=== PATIENT | female | born 1980 | race Two or more races ===

== ENCOUNTER 2018-11-15 16:03 | Outpatient (CLI) | payer BC, OTHER ==
--- NOTE | 2018-11-15 17:26 | US ---
EXAMINATION TYPE: US OB limited DATE OF EXAM: 11/15/2018 COMPARISON: NONE CLINICAL HISTORY: variables at 35 weeks. Assess DEANNE EXAM PERFORMED: Transabdominal (TA) GESTATIONAL AGE / DATING Physician Established: (35 weeks/6 days) EDC: 12/14/18 No growth performed on today?s study per ordering physician SURVEY DEANNE: 10.9 cm Normal Ultrasound evidence of premature rupture of membranes? no HEART RATE: 139 bpm RHYTHM: Normal IMPRESSION: Negative examination.
--- NOTE | 2018-11-24 18:07 | P.MSEPDOC ---
Presenting Problems - Arrival Data Date of Arrival on Unit: 11/15/18 Time of Arrival on Unit: 16:03 Mode of Transport: Ambulatory Physician Notification (Pre) - Notification Comment Comment: Dr. Pereira sent pt from office for extended monitoring, and ultrasound for travon, he was given report by ultrasound about travon, he reviewed strip and discharged pt home Disposition - Disposition OB Disposition: Triage, Discharge to home, Written follow up instructions reviewed Discharge Date: 11/15/18 Discharge Time: 16:45 I agree with the RN Medical Screening Exam: Yes Risk & Benefit of care provided described in d/c instruction: Yes Diagnosis: RELATED CONDITIONS, UNSPECIFIED, THIRD TRIMESTER
== END 2018-11-15 16:48 | disposition home or self-care (01) ==
LOC: FBPOP 16:03
PROVIDERS: ATTEND Obstetrics & Gynecology
DX: O26.93 Pregnancy related conditions, unspecified, third trimester (principal); Z3A.35 35 weeks gestation of pregnancy
CPT/HCPCS: 59025; 76815

== ENCOUNTER → 2018-12-03 | Outpatient (CLI) | payer OTHER ==
--- NOTE | 2019-01-27 08:57 | P.MSEPDOC ---
I agree with the RN Medical Screening Exam: Yes Risk & Benefit of care provided described in d/c instruction: Yes Diagnosis: RELATED CONDITIONS, UNSPECIFIED, THIRD TRIMESTER
== END | disposition home or self-care (01) ==
LOC: FBPOP 11:27
PROVIDERS: ATTEND Obstetrics & Gynecology
DX: O26.93 Pregnancy related conditions, unspecified, third trimester (principal); Z3A.00 Weeks of gestation of pregnancy not specified
CPT/HCPCS: 59025

== ENCOUNTER 2018-12-07 06:15 | Inpatient (IN) | payer BC, OTHER ==
[2018-12-07] MEDS ORDERED: TERBUTALINE 1 MG/ML VIAL SQ PRN (06:58)
[2018-12-07] MEDS ORDERED: LIDOCAINE 0.5% (PF) 5 MG/ML (50 ML SDV) SQ PRN (06:58)
[2018-12-07] MEDS ORDERED: OXYTOCIN 10 UNIT/ML 1 ML VIAL IM PRN (06:58)
[2018-12-07] MEDS ORDERED: METHYLERGONOVINE 0.2 MG/ML 1 ML AMP IM PRN (06:58)
[2018-12-07] MEDS ORDERED: CARBOPROST TROMETHAMINE 250 MCG/ML 1 ML AMP IM PRN (06:58)
[2018-12-07 07:31] VITALS: BMI 23.6
[2018-12-07] MEDS: LACTATED RINGERS 1,000 ML IV SCH ×2 (07:32→11:38)
[2018-12-07] MEDS: OXYTOCIN 20 UNITS/1000 ML NS 1,000 ML IV SCH (07:47)
[2018-12-07 07:54] LABS: Basophils % (A) 0 %; Eosinophils % (A) 0 %; HCT 35.1 % (34.0-46.0); HGB 11.4 gm/dL (11.4-16.0); Lymphocytes # (A) 1.7 k/uL (1.0-4.8); Lymphocytes % (A) 17 %; MCH 31.8 pg (25.0-35.0); MCHC 32.4 g/dL (31.0-37.0); MCV 98.3 fL (80.0-100.0); Mean Platelet Volume 8.2; Monocytes # (A) 0.4 k/uL (0-1.0); Monocytes % (A) 4 %; Neutrophils # (A) 7.9 k/uL (1.3-7.7); Neutrophils % (A) 77 %; Platelet Count 162 k/uL (150-450); RBC 3.57 m/uL (3.80-5.40); RDW 13.3 % (11.5-15.5); WBC 10.2 k/uL (3.8-10.6)
[2018-12-07] MEDS ORDERED: BUTORPHANOL 1 MG/ML 1 ML VIAL IV PRN (10:04)
[2018-12-07] MEDS ORDERED: SODIUM CHLORIDE 0.9% 100 ML BAG ONE (11:17)
[2018-12-07] MEDS ORDERED: ROPIVACAINE 5MG/ML 20ML VIAL ONE (11:17)
[2018-12-07] MEDS ORDERED: fentaNYL (PF) 50 MCG/ML 5 ML AMP ONE (11:17)
[2018-12-07] MEDS ORDERED: LANOLIN CREAM 5 GM TUBE TOPICAL PRN (14:44)
[2018-12-07] MEDS ORDERED: WITCH HAZEL 1 EACH MED..PAD TOPICAL PRN (14:44)
[2018-12-07] MEDS ORDERED: SIMETHICONE 80 MG CHEWABLE PO PRN (14:44)
[2018-12-07] MEDS ORDERED: BENZOCAINE/MENTHOL SPRAY 1 GM/SPRAY AEROSOL TOPICAL PRN (14:44)
[2018-12-07] MEDS ORDERED: ZOLPIDEM 5 MG TAB PO PRN (14:44)
[2018-12-07] MEDS: IBUPROFEN 600 MG TAB PO PRN ×2 (15:12→22:20)
--- NOTE | 2018-12-07 16:06 | P.HPOB ---
History of Present Illness H&P Date: 12/07/18 Chief Complaint: Intrauterine at term: Advanced maternal age Patient is a 38-year-old at 39 weeks gestation arise for induction of labor. She was seen by maternal medicine for advanced maternal age and we 've been watching her closely throughout her per the for same. Pertinent labs include A+ blood type Rh antibody was negative, rubella immune, hepatitis B surface antigen/RPR/HIV were all negative. Group B strep was also negative. Her course otherwise was unremarkable. On physical exam vital signs are stable and afebrile. Heart regular, lungs clear, extremities without pain. Abdomen is soft and gravid uterus is noted. Category 1 tracing is noted. She is dilated to approximately 2 cm and 80% effaced. Artificial rupture membranes was performed and clear fluid is noted. Assessment intrauterine at term: Plan expect spontaneous vaginal delivery and plan for epidural for analgesia. Past Medical History Past Medical History: No Reported History History of Any Multi-Drug Resistant Organisms: None Reported Past Surgical History: Appendectomy, Breast Surgery, Tonsillectomy Past Anesthesia/Blood Transfusion Reactions: No Reported Reaction Past Psychological History: ADD/ADHD, Depression Smoking Status: Current every day smoker Past Alcohol Use History: None Reported Past Drug Use History: None Reported - Past Family History Mother Family Medical History: Cancer, Diabetes Mellitus, Hypertension, Myocardial Infarction ([place]) Medications and Allergies Home Medications Medication Instructions Recorded Confirmed Type Pnv No.95/Ferrous Fum/Folic AC 1 each PO DAILY 11/15/18 12/07/18 History [ Multivitamin Tablet] Allergies Allergy/AdvReac Type Severity Reaction Status Date / Time No Known Allergies Allergy Verified 12/07/18 06:58 Exam Osteopathic Statement: *. No significant issues noted on an osteopathic structural exam other than those noted in the History and Physical/Consult. Vital Signs Temp Pulse Resp BP 12/07/18 15:47 70 14 110/70 12/07/18 15:17 61 14 104/51 12/07/18 15:05 76 14 148/76 12/07/18 14:50 93 14 138/65 12/07/18 14:35 86 14 145/53 12/07/18 14:20 98 F 88 18 131/62 12/07/18 07:22 97.4 F L 82 14 113/82 Intake and Output 0112/07/18 12/07/18 06:59 14:59 22:59 Other: Weight 64.41 kg - OBG Physical Exam Breast: both: normal (no masses) Abdomen: bowel sounds normal, no diffuse tenderness, no bruit present, no guarding noted, no hepatomegaly, no splenomegaly, no mass Vulva: both: normal Vagina: normal moisture, no discharge Cervix: no lesion, no discharge Uterus: normal size, normal contour Adnexa: both: normal Anus/Rectum: normal perianal skin, no rectal mass, no hemorrhoids, heme negative Results Result Diagrams: 12/07/18 07:41 Abnormal Lab Results - Last 24 Hours (Table) 12/07/18 Range/Units 07:41 RBC 3.57 L (3.80-5.40) m/uL Neutrophils # 7.9 H (1.3-7.7) k/uL
--- NOTE | 2018-12-07 16:08 | P.PROBDLV ---
Vaginal Delivery Note - . Vaginal Delivery Note: Patient progressed complete and pushing with spontaneous vaginal delivery of a viable male over a secondary midline episiotomy. Episiotomy was made at patient's request as she is had one before when the baby weighed 6 lbs. 1 oz. and there was expectation this baby would be bigger. Following delivery of the head from left occiput anterior position mouth nares were bulb suctioned and anterior and posterior shoulders were delivered with gentle downward and upward traction. Once baby was fully delivered baby was placed on mother's abdomen where the umbilical cord was clamped and cut in usual fashion following 40 seconds of pulsation. Nursery personnel was present to assume care. Weight was 7 lbs. 7 oz. and mother and baby are stable following delivery. Placenta was then delivered intact and Pitocin was added to the IV. Second-degree midline episiotomy was then repaired in usual fashion with 3-0 Vicryl following 1% Xylocaine for analgesia
[2018-12-07] MEDS: HYDROcodone/APAP 5-325MG 1 EACH TAB PO PRN (18:55)
[2018-12-07] MEDS: SENNOSIDES-DOCUSATE SODIUM 1 EACH TAB PO SCH (21:11)
[2018-12-08] MEDS: HYDROcodone/APAP 5-325MG 1 EACH TAB PO PRN ×4 (04:18→21:44)
[2018-12-08 07:38] LABS: Basophils # (A) 0.1 k/uL (0-0.2); Basophils % (A) 0 %; Eosinophils # (A) 0.1 k/uL (0-0.7); Eosinophils % (A) 1 %; HCT 34.8 % (34.0-46.0); HGB 11.3 gm/dL (11.4-16.0); Lymphocytes # (A) 2.4 k/uL (1.0-4.8); Lymphocytes % (A) 19 %; MCH 32.3 pg (25.0-35.0); MCHC 32.3 g/dL (31.0-37.0); MCV 99.8 fL (80.0-100.0); Mean Platelet Volume 8.2; Monocytes # (A) 0.7 k/uL (0-1.0); Monocytes % (A) 5 %; Neutrophils # (A) 9.1 k/uL (1.3-7.7); Neutrophils % (A) 73 %; Platelet Count 142 k/uL (150-450); RBC 3.49 m/uL (3.80-5.40); RDW 13.2 % (11.5-15.5); WBC 12.6 k/uL (3.8-10.6)
--- NOTE | 2018-12-08 07:49 | P.DS ---
Providers Date of admission: 12/07/18 06:44 Expected date of discharge: 12/08/18 Attending physician: Sunday Pereira Primary care physician: Stated None Hospital Course: Patient is doing very well day 1. She is ambulating, voiding, and she is tolerating her diet. She requests discharged home today. Vital signs are stable and afebrile. Heart regular, lungs clear, extremities without pain. Abdomen soft uterus is firm, and lochia is reported light. Prescription for Motrin was 40 to her pharmacy. All questions were answered and discharge instructions thoroughly reviewed. She is stable for discharge this time. She' ll follow up with me in 6 weeks. Patient Condition at Discharge: Good Plan - Discharge Summary Discharge Rx Participant: Yes New Discharge Prescriptions: New Ibuprofen [Motrin] 600 mg PO Q6HR PRN #30 tab PRN Reason: Pain No Action Pnv No.95/Ferrous Fum/Folic AC [ Multivitamin Tablet] 1 each PO DAILY Discharge Medication List Pnv No.95/Ferrous Fum/Folic AC [ Multivitamin Tablet] 1 each PO DAILY [History] Ibuprofen [Motrin] 600 mg PO Q6HR PRN #30 tab 12/08/18 [Rx] Follow up Appointment(s)/Referral(s): Sunday Pereira DO [Doctor of Osteopathic Medicine] - 6 Weeks Activity/Diet/Wound Care/Special Instructions: No heavy lifting, limit stairs and driving and pelvic rest. If any high temperatures, heavy bleeding, or severe pain call my office Discharge Disposition: HOME SELF-CARE
[2018-12-08] MEDS: SENNOSIDES-DOCUSATE SODIUM 1 EACH TAB PO SCH ×2 (07:58→20:04)
[2018-12-08] MEDS: IBUPROFEN 600 MG TAB PO PRN ×2 (07:58→16:24)
[2018-12-08] MEDS: OXYTOCIN 20 UNITS/1000 ML NS 1,000 ML IV SCH (20:12)
[2018-12-08 23:11] VITALS: TEMP 98
[2018-12-09] MEDS: IBUPROFEN 600 MG TAB PO PRN ×2 (00:31→08:30)
[2018-12-09] MEDS: HYDROcodone/APAP 5-325MG 1 EACH TAB PO PRN (06:22)
--- NOTE | 2018-12-09 07:08 | P.PNOBGVD ---
Subjective - Subjective Patient reports: Reports appetite normal, Reports voiding normally, Reports pain well controlled, Reports ambulating normally : doing well Objective - Latest Vital Signs Latest vital signs: Vital Signs Temp Pulse Resp BP Pulse Ox 12/08/18 23:10 98 F 76 18 110/60 99 12/08/18 16:00 98.2 F 75 16 122/45 12/08/18 08:00 98.1 F 70 16 112/65 - Exam Lungs: bilateral: normal Chest: Normal S1, Normal S2 Extremities: Present: normal Abdomen: Present: normal appearance, soft Uterus: Present: normal, firm - Labs Labs: Abnormal Lab Results - Last 24 Hours (Table) 12/08/18 Range/Units 06:56 WBC 12.6 H (3.8-10.6) k/uL RBC 3.49 L (3.80-5.40) m/uL Hgb 11.3 L (11.4-16.0) gm/dL Plt Count 142 L (150-450) k/uL Neutrophils # 9.1 H (1.3-7.7) k/uL Assessment and Plan Assessment: Post day #2. Patient is resting without complaints. She initially wanted to go home yesterday and was discharged by Dr. Pereira however baby has developed some jaundice. Patient therefore stayed overnight. Patient is still doing well having normal lochia. Plan today is to continue routine care and discharge home later today.
[2018-12-09] MEDS: SENNOSIDES-DOCUSATE SODIUM 1 EACH TAB PO SCH (08:31)
[2018-12-09 09:13] VITALS: RESP 16
[2018-12-09 11:43] VITALS: BP 117/76; PULSE 76
== END 2018-12-09 14:04 | disposition home or self-care (01) | DRG 807 ==
LOC: 4FBP 06:44
PROVIDERS: ADMIT Obstetrics & Gynecology; ATTEND Obstetrics & Gynecology
PROC: 10E0XZZ Delivery of Products of Conception, External Approach (ICD-10-PCS; principal; 2018-12-07)
PROC: 0W8NXZZ Division of Female Perineum, External Approach (ICD-10-PCS; 2018-12-07)
PROC: 00HU33Z Insertion of Infusion Device into Spinal Canal, Percutaneous Approach (ICD-10-PCS; 2018-12-07)
PROC: 3E0R3BZ Introduction of Anesthetic Agent into Spinal Canal, Percutaneous Approach (ICD-10-PCS; 2018-12-07)
PROC: 3E033VJ Introduction of Other Hormone into Peripheral Vein, Percutaneous Approach (ICD-10-PCS; 2018-12-07)
PROC: 10907ZC Drainage of Amniotic Fluid, Therapeutic from Products of Conception, Via Natural or Artificial Opening (ICD-10-PCS; 2018-12-07)
DX: O99.334 Smoking (tobacco) complicating childbirth (principal); Z37.0 Single live birth; O99.344 Other mental disorders complicating childbirth; F17.210 Nicotine dependence, cigarettes, uncomplicated; F32.9 Major depressive disorder, single episode, unspecified; F90.9 Attention-deficit hyperactivity disorder, unspecified type; Z3A.39 39 weeks gestation of pregnancy; Z79.899 Other long term (current) drug therapy; Z90.49 Acquired absence of other specified parts of digestive tract; Z83.3 Family history of diabetes mellitus; Z82.49 Family history of ischemic heart disease and other diseases of the circulatory system; Z80.0 Family history of malignant neoplasm of digestive organs
CPT/HCPCS: 85025; 86850; 86900; 86901